=== PATIENT | female | born 1975 | race American Indian/Alaskan Native ===

== ENCOUNTER 2019-10-21 10:27 | Observation (INO) | payer BC ==
[2019-09-12 12:11] LABS: Basophils % (Auto) 1.1 % (0.0-1.8); Eosinophils # (Auto) 0.1 K/mm3 (0.0-0.4); Eosinophils % (Auto) 1.8 % (0.0-4.3); Hematocrit 35.2 % (30.3-42.9); Hemoglobin 11.4 gm/dl (10.1-14.3); Lymphocytes # (Auto) 1.3 K/mm3 (1.2-5.4); Lymphocytes % (Auto) 31.1 % (13.4-35.0); Mean Corpuscular HGB Conc 33 % (30-34); Mean Corpuscular Volume 80 fl (79-97); Monocytes # (Auto) 0.4 K/mm3 (0.0-0.8); Monocytes % (Auto) 8.6 % (0.0-7.3); Platelet Count 270 K/mm3 (140-440); Red Blood Count 4.38 M/mm3 (3.65-5.03)
--- NOTE | 2019-09-12 12:23 | Anesthesia Consultation ---
Anesthesia Consult and Med Hx Date of service: 09/12/19 - Airway Anesthetic Teeth Evaluation: Good ROM Head & Neck: Adequate Mental/Hyoid Distance: Adequate Mallampati Class: Class III Intubation Access Assessment: Possibly Difficult - Pre-Operative Health Status ASA Pre-Surgery Classification: ASA3 Proposed Anesthetic Plan: General Nerve Block: TAP - Cardiovascular System Hx Hypertension: Yes (Past hx, attempts to control with herbal meds) Hx Angina: No (h/o episode of CP, was cleared at [facility]) - Central Nervous System Hx Psychiatric Problems: No - Hematic Hx Anemia: Yes - Other Systems Hx Alcohol Use: Yes (Daily) Hx Cancer: No Hx Obesity: Yes (BMI 42.3)
[2019-09-12 12:28] LABS: BUN/Creatinine Ratio 11; Blood Urea Nitrogen 8 mg/dL (7-17); Calcium 9.1 mg/dL (8.4-10.2); Hemolysis Index 5
[2019-10-17 10:41] LABS: Basophils % (Auto) 0.8 % (0.0-1.8); Lymphocytes # (Auto) 1.4 K/mm3 (1.2-5.4); Lymphocytes % (Auto) 26.6 % (13.4-35.0); Mean Corpuscular HGB Conc 33 % (30-34); Mean Corpuscular Volume 80 fl (79-97); Monocytes # (Auto) 0.5 K/mm3 (0.0-0.8); Monocytes % (Auto) 9.6 % (0.0-7.3); Platelet Count 276 K/mm3 (140-440); Red Blood Count 4.51 M/mm3 (3.65-5.03); Red Cell Distribution Width 18.2 % (13.2-15.2)
[2019-10-17 10:52] LABS: Blood Urea Nitrogen 9 mg/dL (7-17); Calcium 9.3 mg/dL (8.4-10.2); Hemolysis Index 2
[2019-10-17 10:58] LABS: BUN/Creatinine Ratio 13
--- NOTE | 2019-10-18 15:56 | History and Physical Report ---
History of Present Illness Date of examination: 10/16/19 History of present illness: Patient has been reassessed/reevaluated. H&P has been reviewed. No interval changes. This is a 44 years old female who presents with uterine fibroids. She complains of abdominal pain, abdominal pressure, pelvic pain, pelvic pressure, menorrhagia and intermenstrual bleeding. Treatment tried to date includes control pills, myomectomy and NSAIDs. Patient's work up has included several pelvic ultrasounds. Conservative therapies have failed. Patient desires definitive treatment Vital Signs: Patient Profile: 44 Years Old Female LMP: 10/06/2019 Height: 65 inches (165.10 cm) Weight: 292 pounds BMI: 48.59 Menstrual History: LMP (date): 10/06/2019 Current Method of Contraception: None Past History : 2 Term Births: 2 Premature Births: 0 Living Children: 2 Para: 2 Mult. Births: 0 Prev : 0 Aborta: 0 Elect. Ab: 0 Spont. Ab: 0 Ectopics: 0 MARKETING DESIGNER History Uterine Surgery (not C/S): negative Operations: Breast Reduction Tubal Ligation Ovarian Cystectomy laparotomy Myomectomy in [place] 2005 or so Hospitalizations: negative Anesthesia Complications: negative Abnormal PAP: negative Uterine Anomaly: positive fibroids DOMINGO Exposure: negative Infertility: negative Infection History HIV Risk Eval: no Personal hx. of genital herpes: yes Hx of STD: None Current Allergies (reviewed today): PENICILLIN (Critical) Past Medical History: morbid obesity Fibroids Past Surgical History: Breast Reduction Tubal Ligation Ovarian Cystectomy laparotomy Myomectomy in [place] 2005 or so Family History Summary: Family History Breast Cancer- mother Social History: Patient is single Risk Factors: Smoked Tobacco Use: Never smoker Smokeless Tobacco Use: Never Passive smoke exposure: no Drug use: no HIV high-risk behavior: no Caffeine use: <1 drinks per day Alcohol use: yes Type: social Exercise: no Seatbelt use: 100 % Review of Systems General Complains of fatigue. Denies fever, chills, sweats, anorexia, weakness, malaise, weight loss and sleep disorder. Complains of urinary frequency, menorrhagia, pelvic pain and painful periods. Denies vaginal discharge, incontinence, dysuria, hematuria, amenorrhea, abnormal vaginal bleeding, genital sores, decreased libido, painful sex, urinary urgency, hot flashes, vaginal dryness, vaginal itching and vaginal odor. CV Denies chest pains, palpitations, syncope, dyspnea on exertion, orthopnea, PND and peripheral edema. Resp Denies cough, dyspnea at rest, excessive sputum, hemoptysis, wheezing and pleurisy. GI Denies nausea, vomiting, diarrhea, constipation, change in bowel habits, abdominal pain, melena, hematochezia, jaundice, gas/bloating, indigestion/heartburn, dysphagia and odynophagia. Breast Denies left breast lump, right breast lump, nipple discharge, bloody discharge from nipple, breast pain, abnormal mammogram and breast enlargement. Psych Denies depression, anxiety, irritability and mood swings. Past History Past Medical History: other (SEE HPI) Past Surgical History: Other (SEE HPI) Social history: full code, other (SEE HPI) Family history: other (SEE HPI) Medications and Allergies Allergies Allergy/AdvReac Type Severity Reaction Status Date / Time metronidazole [From Flagyl] AdvReac Rash Verified 10/21/19 12:04 Penicillins AdvReac Thrush Verified 09/10/19 16:53 Home Medications Medication Instructions Recorded Confirmed Last Taken Type Iron [Iron 18 MG TAB] 18 mg PO QDAY 09/10/19 10/21/19 10/18/19 09:00 History Multivitamin [Daily Multiple 1 each PO DAILY 09/10/19 10/21/19 10/18/19 09:00 History Vitamin] Active Meds: Active Medications Celecoxib (Celebrex) 200 mg PO PREOP NR Stop: 10/21/19 23:59 Fentanyl (Sublimaze) 100 mcg IV ONCE PRN PRN Reason: sedation for nerve block Stop: 10/21/19 23:59 Gabapentin (Gabapentin) 600 mg PO PREOP NR Stop: 10/21/19 23:59 Lactated Ringer's (Lactated Ringers) 1,000 mls @ 100 mls/hr IV DIRECT EYAD Stop: 10/21/19 23:59 Magnesium Oxide (Mag-Ox) 400 mg PO PREOP EYAD Stop: 10/21/19 23:59 Midazolam HCl (Versed) 2 mg IV PREOP NR Stop: 10/21/19 23:59 Review of Systems Constitutional: other (SEE HPI) Exam - Physical Exam Narrative exam: HEENT: normocephalic, no lesions or deformities Skin no ulcers, xanthomas Chest: respiratory effort normal, clear to auscultation Breasts: skin/areolae normal, no masses, no nipple discharge, no erythem a/warmth/tenderness, and axillae normal. Breast reduction surgical scars bilaterally CV: regular, normal S1-S2, no murmur, no rub, no gallop Abdomen: obese normal bowel sounds, soft, nontender, no HSM Well healed surgical scar Neuro: no gross anomalities Extremities: normal alignment, no joint enlargement, crepitus, masses or tenderness; normal tone and strength MARKETING DESIGNER Exams Vulva/Vagina: No lesions, normal BUS, normal rugae Cervix: No lesions; no cervical motion tenderness Uterus: Enlarged 16- 18 week size Adnexae: unable to palpate due to obesity Rectovaginal: exam defered Results - Labs CBC & Chem 7: 10/17/19 10:30 10/17/19 10:30 Assessment and Plan - Patient Problems (1) Intramural leiomyoma of uterus Current Visit: No Status: Acute Plan to address problem: Diagnosis explained to patient . Questions answered. Discussed with patient various medical, surgical and radiological therapies common for treatment including expectant management, myomectomy hysterectomy and uterine artery embolization Conservative therapies have failed. Patient desires definitive treatment Patient desires hysterectomy Discussed risks and benefits of laparotomy, laparoscopy, vaginal and robotic assisted approaches for hysterectomies Patient desires robotic assisted total hysterectomy. Patient desires robotic assisted total hysterectomy. Consent reviewed and signed . The risks and alternatives for this surgery were reviewed with the patient. Discuss the risks of the surgery including infection, bleeding possibly heavy enough to require a blood transfusion, possible damage to bowel, bladder or ureter. Patient understand that this surgery with make her sterile.Patient understands if her ovaries are removed she will become menopausal. Also if unable to complete robitcally a laparotomy may be required. Patient advised the small risks of spreading of malignancy if morcellator is used during the surgery patient understands and approve of use if necessary Patient understands her risks of adjacent organ damage is increased due to her previous surgery(ies) Patient understands and desires to proceed. (2) Excessive and frequent menstruation with regular cycle Current Visit: No Status: Acute Plan to address problem: Probably secondary to # 1 (3) Secondary dysmenorrhea Current Visit: No Status: Acute Plan to address problem: Probably secondary to # 1 (4) Pelvic and perineal pain Current Visit: No Status: Acute Plan to address problem: Probably secondary to # 1 (5) Morbid (severe) obesity due to excess calories Current Visit: No Status: Acute (6) BMI 45.0-49.9, adult Current Visit: No Status: Acute
[~2019-10-21 10:27] MED LIST: BUPIVACAINE/PF (0.5%) 5 MG/1 ML 10 ML VIAL INFILTRATI NR; CELECOXIB 200 MG CAP PO NR; FAMOTIDINE 20 MG/2 ML INJ IV NR; GABAPENTIN 300 MG CAP PO NR; GENTAMICIN 40 MG/ML VIAL 2 ML IV SCH; LACTATED RINGERS 1,000 ML IV SCH; LIDOCAINE (1%) 10 MG/1 ML VIAL 20 ML MDV INFILTRATI NR; MAGNESIUM OXIDE 400 MG TAB PO SCH; MIDAZOLAM 2 MG/2 ML INJ IV NR; SCOPOLAMINE TRANSDERMAL PATCH 72 HR TD NR; SODIUM CHLORIDE 0.9% P/F 10 ML VIAL INFILTRATI NR; fentaNYL 100 MCG/2 ML INJ IV PRN; fentaNYL 100 MCG/2 ML INJ IV SCH
[2019-10-21] MEDS ORDERED: dexAMETHasone 4 MG/ML VIAL ONE (11:40)
[2019-10-21] MEDS ORDERED: BUPIVACAINE-EPINEPHRINE/PF 0.25%-1:200,000 (30 ML) VIAL INFILTRATI ONE (11:41)
[2019-10-21] MEDS ORDERED: HYDROmorphone 1 MG/1 ML INJ IV PRN (11:43)
--- NOTE | 2019-10-21 11:44 | Anesthesia Day of Surgery ---
Anesthesia Day of Surgery - Day of Surgery Patient Examined: Yes Patient H&P Reviewed: Yes Patient is NPO: Yes
[2019-10-21] MEDS ORDERED: GENTAMICIN 40 MG/ML VIAL 2 ML IV SCH (12:15)
[2019-10-21] MEDS ORDERED: NEOMY 40 MG/POLYMYXIN B 200,000 UNITS/ML (GU) AMPULE IR ONE ×2 (12:28→14:02)
[2019-10-21] MEDS ORDERED: HYDROmorphone 1 MG/1 ML INJ ONE (12:34)
[2019-10-21] MEDS ORDERED: propofoL 200 MG/20 ML VIAL IV ONE (12:35)
[2019-10-21] MEDS ORDERED: LIDOCAINE MPF (2%) 20 MG/1 ML VIAL 5 ML ONE (12:36)
[2019-10-21] MEDS ORDERED: GENTAMICIN 180 MG in SODIUM CHLORIDE 0.9% 100 ML IV NR (12:45)
[2019-10-21] MEDS ORDERED: ROCURONIUM 50 MG/5 ML INJ IV ONE (13:25)
[2019-10-21] MEDS ORDERED: SODIUM CHLORIDE 0.9% IRRIG SOLN 2000 ML IR ONE (14:03)
[2019-10-21] MEDS ORDERED: SODIUM CHLORIDE 0.9% IRR 1,500 ML BOTTLE IR ONE (14:03)
[2019-10-21] MEDS ORDERED: NEOSTIGMINE 10MG/10 ML INJ MDV ONE (16:06)
[2019-10-21] MEDS ORDERED: ONDANSETRON 4 MG/2 ML INJ ONE (16:06)
[2019-10-21] MEDS ORDERED: GLYCOPYRROLATE 0.4 MG/2 ML INJ ONE (16:06)
[2019-10-21] MEDS ORDERED: LACTATED RINGERS 1,000 ML ONE (16:06)
[2019-10-21] MEDS ORDERED: KETOROLAC 30 MG/1 ML INJ ONE (16:08)
--- NOTE | 2019-10-21 16:39 | Short Stay Summary ---
Short Stay Documentation Date of service: 10/21/19 - History Past Medical History: other (SEE HPI) Past Surgical History: Other (SEE HPI) Social history: full code, other (SEE HPI) - Allergies and Medications Current Medications: Allergies metronidazole [From Flagyl] Adverse Reaction (Verified 10/21/19 12:04) Rash HAD THRUSH Penicillins Adverse Reaction (Verified 09/10/19 16:53) Thrush Home Medications Medication Instructions Recorded Confirmed Last Taken Type Iron [Iron 18 MG TAB] 18 mg PO QDAY 09/10/19 10/21/19 10/18/19 09:00 History Multivitamin [Daily Multiple 1 each PO DAILY 09/10/19 10/21/19 10/18/19 09:00 History Vitamin] Active Medications Celecoxib (Celebrex) 200 mg PO PREOP NR Stop: 10/21/19 23:59 Last Admin: 10/21/19 11:37 Dose: 200 mg Documented by: Fentanyl (Sublimaze) 100 mcg IV ONCE PRN PRN Reason: sedation for nerve block Stop: 10/21/19 23:59 Last Admin: 10/21/19 12:14 Dose: 100 mcg Documented by: Gabapentin (Gabapentin) 600 mg PO PREOP NR Stop: 10/21/19 23:59 Last Admin: 10/21/19 11:38 Dose: 600 mg Documented by: Hydromorphone HCl (Dilaudid) 0.5 mg IV Q10MIN PRN PRN Reason: Pain , Severe (7-10) Lactated Ringer's (Lactated Ringers) 1,000 mls @ 100 mls/hr IV DIRECT EYAD Stop: 10/21/19 23:59 Last Admin: 10/21/19 11:35 Dose: 100 mls/hr Documented by: Clindamycin HCl (Cleocin 900 Mg/50 Ml) 900 mg in 50 mls @ 100 mls/hr IV PREOP NR; Protocol Stop: 10/21/19 23:59 Gentamicin Sulfate 180 mg/ (Sodium Chloride) 104.5 mls @ 200 mls/hr IV PREOP NR Stop: 10/21/19 23:59 Magnesium Oxide (Mag-Ox) 400 mg PO PREOP EYAD Stop: 10/21/19 23:59 Last Admin: 10/21/19 11:38 Dose: 400 mg Documented by: Midazolam HCl (Versed) 2 mg IV PREOP NR Stop: 10/21/19 23:59 Last Admin: 10/21/19 12:14 Dose: 2 mg Documented by: - Physical exam General appearance: no acute distress Integumentary: no rash HEENT: Atraumatic Lungs: Normal air movement Breasts: deferred Heart: Regular rate Gastrointestinal: hypoactive bowel sounds, tenderness (Appropriate postoperatively), distended ([place] consistent with previous robotic surgery), no guarding, obese, other (Healing trocar incision site) Female Genitourinary: deferred Rectal Exam: deferred Extremities: no ischemia, pulses intact, Full ROM Neurological: Normal gait - Brief post op/procedure progress note Date of procedure: 10/21/19 (See dictated operative note) - Hospital course Hospital course: Patient was admitted and underwent above procedure without complications. Discussed operative findings with patient and her and all questions were answered. Her post operative course was benign she was afebrile throughout. Patient postoperative hematocrit did decrease. Patient had no orthostatic symptoms. Patient was tolerating regular diet and voiding without difficulty at time of discharge. Patient incision was healing well without evidence of infection. - Disposition Condition at discharge: Good Disposition: DC-01 TO HOME OR SELFCARE - Discharge Diagnoses (1) Intramural leiomyoma of uterus Status: Acute (2) Excessive and frequent menstruation with regular cycle Status: Acute (3) Secondary dysmenorrhea Status: Acute (4) Pelvic and perineal pain Status: Acute (5) Morbid (severe) obesity due to excess calories Status: Acute (6) BMI 45.0-49.9, adult Status: Acute (7) Acute blood loss anemia Status: Acute Short Stay Discharge Plan Activity: advance as tolerated Diet: regular Wound: open to air Additional Instructions: Patient instructed no heavy lifting for 4 weeks. No intercourse for 8 weeks. Call office for fever, chills, nausea, vomiting or pain not controlled by pain medications. Ambulation is encouraged. Patient's call for heavy vaginal bleeding. Patient instructed to keep her scheduled post operative office appointment. Follow up with: NESHA MONGE MD [Primary Care Provider] - 7 Days Prescriptions: Ibuprofen [Motrin] 800 mg PO Q6H PRN #30 tablet PRN Reason: Pain, Moderate (4-6) oxyCODONE /ACETAMINOPHEN [Percocet 5/325 mg] 1 - 2 tab PO Q6HR PRN #20 tablet PRN Reason: Pain
--- NOTE | 2019-10-21 16:53 | Operative Report ---
Operative Report Operative Report: Date of procedure: October 21, 2019 Pre-operative diagnosis: Symptomatic leiomyomata with menorrhalgia and dy smenorrhea Post-operative diagnosis: Same Procedure name(s):Robotic Assisted Total Hysterectomy with bilateral salpingectomy Surgeon: Clifford Iglesias MD Director Behavioral Health: Nasima Mccloud, accountant certified public Anesthesia: General EBL: 500 cc Complications: None Findings: Uterus with multiple leiomyomata approximately 16 to 18 weeks in size. Patient with right ovary appearing with a corpus luteum cyst. Bilaterally interrupted fallopian tubes. Patient had a absent left ovary. Patient did not give history of oophorectomy. Specimen(s): Uterus with cervix, bilateral fallopian tubes and leiomyomata Procedure: Patient was brought to the operating room where general anesthesia was induced without difficulty. Patient was placed in the dorsal lithotomy position. Prepped and draped in the usual sterile manner for robotic procedure. Yao catheter was placed without difficulty. Speculum was placed in the vagina. A large V-Care Uterine manipulator was placed without difficulty. Attention was now switched to the patient's abdomen. A vertical supra-umbilicus incision was made with a scalpel. A 10-12 trocar was placed in this incision under direct visualization. Intra-abdominal placement was verified with no evidence of internal organ damage. The patient pelvic findings were noted as above. It was determined that the patient was a candidate for robotic procedure. On both sides the umbilical incision at about 8 cm, incisions were made for robotic trocars. Each robotic trocar was placed under direct visualization with no evidence of internal organ damage. One 5 mm trocar was placed 2 fingerbreadths above the right iliac crest. A 5 mm camera was placed in the right lower quadrant trocar, the 10-12 trocar was removed and a Chuy Ponce laparoscopic port closure device was placed through this incision under direct visualization with no evidence of internal organ damage. The camera was then replaced into this large midline port. At this time the patient was placed in extreme Trendelenburg. The da Alisa robot was then docked on the patient's left side. The trocars connected to the robot appropriately. Robotic instruments were placed under direct visualization no evidence of internal organ damage.. At this time I took my place under the robotic operating lee. Starting on the patient's right side the ureter was difficult to identify due to adhesions and large uterus. Using the robotic vessel sealer the mesosalpinx under the distal fallopian tube were cauterized and cut starting from the distal end. The distal portion of the fallopian tube was removed through the sales office assistant port on the right. The utero-ovarian complex was then cauterized and cut. This was followed by cauterizing and cutting the right fallopian tube and right round ligament. The broad ligament was then opened. The bladder flap was formed anteriorly. The posterior broad ligament was then excised. The uterine vessels were skeletonized. The bladder was pushed away from the anterior uterus. The right uterine vessels were then cauterized and cut. Attention was then switched to the patient's left side. The same procedure was repeated on the left side with perform the salpingectomy followed by isolating the uterine vessels cauterized and cutting and completing the bladder flap from the left side. At this time the uterus was appearing very cyanotic. After inspecting the bladder flap to insured no evidence of bladder injury, the colpotomy was then started. Incision started at 6:00 until the V-Care could be seen. This incision was extended from 6:00 to 9:00. Then from 6:00 to 3:00. Then from 9:00 to 12:00. This incision was extended from 3:00 to 12:00. At this time colpotomy was complete with no evidence of adjacent organ damage. Due to the large size of the uterus initially could not be removed through the colpotomy. The uterus was then bivalved with the robotic scissors with removing 2 leiomyomata in the process. After the uterus was halfed the assistant paralegal remove the uterus from through the colpotomy site in sections. The vaginal cuff was irrigated and cauterized and found to be hemostatic. The cuff was closed with roboticly using 0 V- Lock suture. This closure was hemostatic after irrigation and Bovie. All pedicles were inspected and found to be hemostatic. The ureters still were difficult to identify but there was no evidence of dilated ureters seen. The patient had clear urine in the Yao catheter with no evidence of mixture with blood. Joycelyn was placed on the cuff and pedicles for postoperative hemostasis . All instruments were then removed. The large trocar sites were closed in layers 2-0 Vicryl and 4-0 Monocryl. The smaller incisions were closed subcuticularly with 4-0 Monocryl. Dermabond was placed over the skin incisions. The patient tolerated procedure well. She was awakened in the operating room and accompanied to the recovery room in good condition.
[2019-10-21] MEDS ORDERED: ONDANSETRON 4 MG/2 ML INJ IV PRN ×2 (17:16→17:57)
[2019-10-21] MEDS ORDERED: D5W/LACTATED RINGERS 1,000 ML IV ONE (17:31)
[2019-10-21] MEDS ORDERED: HYDROcodone/ACETAMINOPHEN 5-325 MG TAB PO PRN (17:57)
[2019-10-21] MEDS ORDERED: D5W/LACTATED RINGERS 1,000 ML IV SCH (17:57)
[2019-10-21] MEDS: KETOROLAC 30 MG/1 ML INJ IV SCH ×2 (18:37→23:55)
[2019-10-21] MEDS: GENTAMICIN/NS 80 MG/100 ML 100 ML IV SCH (20:00)
[2019-10-21] MEDS: CLINDAMYCIN 600 MG/50 mL 600 MG/50 ML BAG IV SCH (21:15)
[2019-10-21] MEDS: DOCUSATE SODIUM 100 MG CAP PO SCH (22:37)
[2019-10-22 00:36] LABS: Hematocrit 31.9 % (30.3-42.9); Hemoglobin 11.1 gm/dl (10.1-14.3)
[2019-10-22] MEDS: GENTAMICIN/NS 80 MG/100 ML 100 ML IV SCH (03:51)
[2019-10-22] MEDS: KETOROLAC 30 MG/1 ML INJ IV SCH (05:50)
[2019-10-22] MEDS: CLINDAMYCIN 600 MG/50 mL 600 MG/50 ML BAG IV SCH (05:51)
[2019-10-22 06:29] LABS: Hematocrit 30.8 % (30.3-42.9); Hemoglobin 10.4 gm/dl (10.1-14.3)
[2019-10-22] MEDS: DOCUSATE SODIUM 100 MG CAP PO SCH (10:27)
[2019-10-22 11:43] VITALS: BP 112/59
== END 2019-10-22 11:40 | disposition home or self-care (01) ==
LOC: OR 10:27 → OB 16:56 → 3A 17:13 → OB 17:14
PROVIDERS: ADMIT Obstetrics & Gynecology; ATTEND Obstetrics & Gynecology
DX: D25.1 Intramural leiomyoma of uterus (principal); N92.0 Excessive and frequent menstruation with regular cycle; N94.5 Secondary dysmenorrhea; D62 Acute posthemorrhagic anemia; R10.2 Pelvic and perineal pain; E66.01 Morbid (severe) obesity due to excess calories; Z98.890 Other specified postprocedural states; Z90.710 Acquired absence of both cervix and uterus; Z68.42 Body mass index [BMI] 45.0-49.9, adult; Z98.51 Tubal ligation status; Z79.899 Other long term (current) drug therapy
CPT/HCPCS: 36415; 58573; 64450; 80048; 84703; 85014; 85018; 85025; 86850; 86900; 86901; 88302; 88307; 96361; 96365; 96366; 96367; 96375; 96376; A4217; G0378; J1100; J1170; J1580; J1885; J2250; J2405; J2704; J2710; J3010; J7120; J7121; S2900; U0003